=== PATIENT | male | born 1960 | race Two or more races ===

== ENCOUNTER 2018-01-17 20:11 | Emergency (ER) | payer SELFPAY ==
[2018-01-17 20:23] VITALS: BP 189/83
== END 2018-01-17 22:10 | disposition left against medical advice (07) ==
LOC: ER 20:11
DX: Z53.21 Procedure and treatment not carried out due to patient leaving prior to being seen by health care provider (principal)

== ENCOUNTER 2019-11-06 17:35 | Emergency (ER) | payer OTHER ==
[2019-11-06] MEDS ORDERED: IBUPROFEN 800 MG TABLET PO ONE (17:48)
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
[2019-11-06] MEDS ORDERED: LISINOPRIL 10 MG TABLET PO ONE (18:57)
[2019-11-06 19:01] VITALS: BP 190/103
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
== END 2019-11-06 19:41 | disposition home or self-care (01) ==
LOC: ER 17:35
DX: M54.6 Pain in thoracic spine (principal); M79.672 Pain in left foot; M54.2 Cervicalgia; V49.50XA Passenger injured in collision with unspecified motor vehicles in traffic accident, initial encounter; R25.2 Cramp and spasm; F17.200 Nicotine dependence, unspecified, uncomplicated; I10 Essential (primary) hypertension
CPT/HCPCS: 72070; 99283

== ENCOUNTER 2019-11-27 12:32 | Observation (INO) | payer OTHER ==
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
--- NOTE | 2019-11-27 14:04 | RADIOLOGY REPORT (SQ) ---
EXAM DESCRIPTION: CHEST 2 VIEWS COMPLETED DATE/TIME: 11/27/2019 1:57 pm REASON FOR STUDY: CHEST PAIN COMPARISON: None. EXAM PARAMETERS: NUMBER OF VIEWS: two views TECHNIQUE: Digital Frontal and Lateral radiographic views of the chest acquired. RADIATION DOSE: NA LIMITATIONS: none FINDINGS: LUNGS AND PLEURA: No opacities, masses or pneumothorax. No pleural effusion. MEDIASTINUM AND HILAR STRUCTURES: No masses or contour abnormalities. HEART AND VASCULAR STRUCTURES: Heart normal size. No evidence for failure. Aortic atherosclerosis. BONES: No acute findings. Chronic left 4th- 6th rib fractures. HARDWARE: None in the chest. OTHER: No other significant finding. IMPRESSION: NO ACUTE RADIOGRAPHIC FINDING IN THE CHEST. TECHNICAL DOCUMENTATION: JOB ID: [id number] 2011 [employer]- All Rights Reserved Reading location - IP/workstation name: [email or web address]
[2019-11-27 15:08] LABS: ABSOLUTE BASOPHILS # (AUTO) 0.1 10^3/uL (0.0-0.2); ABSOLUTE EOSINOPHILS # (AUTO) 0.1 10^3/uL (0.0-0.6); ABSOLUTE LYMPHOCYTES (AUTO) 2.5 10^3/uL (0.5-4.7); ABSOLUTE MONOCYTES (AUTO) 0.4 10^3/uL (0.1-1.4); ABSOLUTE NEUT (AUTO) 4.2 10^3/uL (1.7-8.2); BASOPHILS % (AUTO) 0.7 % (0-2); EOSINOPHILS % (AUTO) 1.8 % (0-6); HEMATOCRIT 44.8 % (37.9-51.0); HEMOGLOBIN 16.1 g/dL (13.5-17.0); LYMPHOCYTES % (AUTO) 33.9 % (13-45); MEAN CORPUSCULAR HEMOGLOBIN 31.6 pg (27.0-33.4); MEAN CORPUSCULAR HGB CONC 35.8 g/dL (32.0-36.0); MEAN CORPUSCULAR VOLUME 88 fl (80-97); MONOCYTES % (AUTO) 5.9 % (3-13); RED BLOOD COUNT 5.08 10^6/uL (4.35-5.55); RED CELL DISTRIBUTION WIDTH 14.1 % (11.5-14.0); SEGMENTED NEUTROPHILS % (AUTO) 57.7 % (42-78); TOTAL CELLS COUNTED % (AUTO) 100 %; WHITE BLOOD COUNT 7.3 10^3/uL (4.0-10.5)
[2019-11-27 15:24] LABS: ALBUMIN 4.4 g/dL (3.5-5.0); ALKALINE PHOSPHATASE 61 U/L (38-126); ANION GAP 10 (5-19); ASPARTATE AMINO TRANSFERASE 25 U/L (17-59); BILIRUBIN,DIRECT 0.2 mg/dL (0.0-0.4); BILIRUBIN,TOTAL 0.4 mg/dL (0.2-1.3); BLOOD UREA NITROGEN 25 mg/dL (7-20); CALCIUM 10.1 mg/dL (8.4-10.2); CARBON DIOXIDE 27 mmol/L (22-30); CHLORIDE 103 mmol/L (98-107); GLUCOSE 101 mg/dL (75-110); POTASSIUM 4.8 mmol/L (3.6-5.0); TOTAL PROTEIN 7.3 g/dL (6.3-8.2)
[2019-11-27 15:38] LABS: PLATELET COUNT 261 10^3/uL (150-450)
[2019-11-27] MEDS ORDERED: HYDRALAZINE HCL INJ/PF 20 MG/1 ML SDV IV ONE (17:24)
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
[2019-11-27] MEDS ORDERED: TEMAZEPAM 7.5 MG CAPSULE PO PRN (18:55)
[2019-11-27] MEDS ORDERED: BUTALB/ACETAMINOPHEN/CAFFEINE 1 TAB EACH PO PRN (19:00)
[2019-11-27] MEDS ORDERED: LISINOPRIL 10 MG TABLET PO ONE (19:01)
[2019-11-27] MEDS ORDERED: HYDRALAZINE HCL INJ/PF 20 MG/1 ML SDV IV PRN (19:02)
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
[2019-11-27] MEDS: ACETAMINOPHEN 325 MG TABLET PO PRN (20:14)
--- NOTE | 2019-11-27 20:16 | EKG REPORT ---
SEVERITY:- NORMAL ECG - SINUS RHYTHM : Confirmed by: Tony Solorzano MD 27-Nov-2019 20:15:52
[2019-11-27] MEDS: CHLORTHALIDONE 25 MG TABLET PO SCH (20:50)
[2019-11-27] MEDS: CYCLOBENZAPRINE HCL 10 MG TABLET PO SCH (21:20)
[2019-11-28] MEDS: CYCLOBENZAPRINE HCL 10 MG TABLET PO SCH ×3 (05:05→21:20)
[2019-11-28 06:15] LABS: HEMATOCRIT 47.4 % (37.9-51.0); HEMOGLOBIN 16.6 g/dL (13.5-17.0); MEAN CORPUSCULAR HEMOGLOBIN 31.2 pg (27.0-33.4); MEAN CORPUSCULAR VOLUME 89 fl (80-97); PLATELET COUNT 259 10^3/uL (150-450); RED BLOOD COUNT 5.31 10^6/uL (4.35-5.55); RED CELL DISTRIBUTION WIDTH 14.1 % (11.5-14.0); WHITE BLOOD COUNT 5.7 10^3/uL (4.0-10.5)
[2019-11-28 06:39] LABS: ANION GAP 9 (5-19); BLOOD UREA NITROGEN 20 mg/dL (7-20); CALCIUM 9.9 mg/dL (8.4-10.2); CARBON DIOXIDE 29 mmol/L (22-30); CHLORIDE 101 mmol/L (98-107); GLUCOSE 97 mg/dL (75-110); POTASSIUM 4.5 mmol/L (3.6-5.0)
--- NOTE | 2019-11-28 09:05 | EKG REPORT ---
SEVERITY:- NORMAL ECG - SINUS RHYTHM NONSPECIFIC ST-T CHANGES LATERAL LEADS : Confirmed by: Tony Solorzano MD 28-Nov-2019 07:10:58
[2019-11-28] MEDS: ACETAMINOPHEN 325 MG TABLET PO PRN ×2 (10:00→21:20)
[2019-11-28] MEDS: LISINOPRIL 10 MG TABLET PO SCH (10:01)
[2019-11-28] MEDS: CHLORTHALIDONE 25 MG TABLET PO SCH (10:01)
[2019-11-28] MEDS: ENOXAPARIN SODIUM INJ 40 MG/0.4 ML DISP.SYRIN SUBCUT SCH (10:04)
[2019-11-28] MEDS: DOCUSATE SODIUM 100 MG CAPSULE PO SCH (10:38)
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
[2019-11-28] MEDS ORDERED: INFLUENZA QUAD (6MOS+) 2019-20 VAC 0.5 ML SYR IM ONE (13:50)
--- NOTE | 2019-11-28 16:46 | PDOC PROGRESS REPORT ---
Subjective Progress Note for:: 11/28/19 Subjective:: Seen and examined. Chest pain resolved. Aches and pains over the body. BP is better controlled Reason For Visit: HTN EMERGENCY Physical Exam Vital Signs: Temp Pulse Resp BP Pulse Ox 98.0 F 59 L 18 149/87 H 94 11/28/19 15:12 11/28/19 15:12 11/28/19 15:12 11/28/19 15:12 11/28/19 15:12 Intake & Output 11/27/19 11/28/19 11/29/19 06:59 06:59 06:59 Intake Total 440 356 Balance 440 356 Weight 87.3 kg General appearance: PRESENT: no acute distress, cooperative, obese, well- developed Head exam: PRESENT: atraumatic, normocephalic Eye exam: PRESENT: conjunctiva pink, EOMI Respiratory exam: PRESENT: symmetrical, tachypnea Cardiovascular exam: PRESENT: RRR, +S1, +S2 Pulses: PRESENT: normal radial pulses GI/Abdominal exam: PRESENT: soft Rectal exam: PRESENT: deferred Musculoskeletal exam: PRESENT: normal inspection Neurological exam: PRESENT: alert, awake, oriented to person, oriented to place, oriented to time, oriented to situation Psychiatric exam: PRESENT: appropriate affect Skin exam: PRESENT: dry, intact, normal color Results Laboratory Results: 11/28/19 05:01 11/28/19 05:01 11/28/19 11/28/19 05:01 05:01 WBC 5.7 RBC 5.31 Hgb 16.6 Hct 47.4 MCV 89 MCH 31.2 MCHC 35.0 RDW 14.1 H Plt Count 259 Sodium 139.1 Potassium 4.5 Chloride 101 Carbon Dioxide 29 Anion Gap 9 BUN 20 Creatinine 0.81 Est GFR ( Amer) > 60 Glucose 97 Calcium 9.9 11/27/19 11/27/19 14:25 17:45 Troponin I 0.761 0.748 Impressions: Chest X-Ray 11/27/19 13:47 IMPRESSION: NO ACUTE RADIOGRAPHIC FINDING IN THE CHEST. Assessment & Plan - Diagnosis (1) Chest pain Qualifiers: Chest pain type: unspecified Qualified Code(s): R07.9 - Chest pain, unspe cified Is this a current diagnosis for this admission?: Yes Plan: Unlikely due to myocardial ischemia. Elevated troponin in a setting of uncont rolled systemic hypertension and likely subendocardial ischemia although ACS cannot be excluded. Will check Echo (2) Hypertensive emergency without congestive heart failure Is this a current diagnosis for this admission?: Yes Plan: BP is better controlled. (3) Nicotine dependence Qualifiers: Nicotine product type: cigarettes Is this a current diagnosis for this admission?: Yes Plan: Needs tobacco cessation counseling
[2019-11-29 03:31] LABS: APPEARANCE,URINE SLIGHTLY-CLOUDY; BILIRUBIN,URINE NEGATIVE (NEGATIVE); COLOR,URINE YELLOW; GLUCOSE, URINE NEGATIVE (NEGATIVE); KETONES,URINE NEGATIVE (NEGATIVE); LEUKOCYTE ESTERASE,URINE SMALL (NEGATIVE); NITRITE,URINE POSITIVE (NEGATIVE); PROTEIN,URINE NEGATIVE (NEGATIVE); URINE SPECIFIC GRAVITY 1.011; UROBILINOGEN,URINE NEGATIVE mg/dL (<2.0)
[2019-11-29] MEDS: CYCLOBENZAPRINE HCL 10 MG TABLET PO SCH (05:10)
[2019-11-29] MEDS: DOCUSATE SODIUM 100 MG CAPSULE PO SCH (09:10)
[2019-11-29] MEDS: LISINOPRIL 10 MG TABLET PO SCH (09:10)
[2019-11-29] MEDS: CHLORTHALIDONE 25 MG TABLET PO SCH (09:10)
[2019-11-29] MEDS: ENOXAPARIN SODIUM INJ 40 MG/0.4 ML DISP.SYRIN SUBCUT SCH (09:11)
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
[2019-11-29 13:05] VITALS: BP 157/88
--- NOTE | 2019-11-29 16:28 | PDOC PROGRESS REPORT ---
Subjective Progress Note for:: 11/29/19 Subjective:: Patient seen and examined. Resting in bed. Diffuse aches and pains. No specific complaints of chest pain. Reason For Visit: HTN EMERGENCY Physical Exam Vital Signs: Temp Pulse Resp BP Pulse Ox 97.2 F 77 16 157/88 H 100 11/29/19 13:04 11/29/19 13:04 11/29/19 13:04 11/29/19 13:04 11/29/19 13:04 Intake & Output 11/28/19 11/29/19 11/30/19 06:59 06:59 06:59 Intake Total 440 1032 354 Output Total 200 Balance 440 832 354 Weight 87.3 kg 90.6 kg General appearance: PRESENT: no acute distress, well-developed Head exam: PRESENT: atraumatic, normocephalic Eye exam: PRESENT: conjunctiva pink, EOMI Neck exam: PRESENT: full ROM Respiratory exam: PRESENT: symmetrical, unlabored Cardiovascular exam: PRESENT: RRR, +S1, +S2 GI/Abdominal exam: PRESENT: soft Rectal exam: PRESENT: deferred Musculoskeletal exam: PRESENT: normal inspection Neurological exam: PRESENT: alert, awake, oriented to person, oriented to place, oriented to time, oriented to situation Psychiatric exam: PRESENT: appropriate affect Skin exam: PRESENT: dry, intact, normal color Results Laboratory Results: 11/28/19 05:01 11/28/19 05:01 11/29/19 02:15 Urine Color YELLOW Urine Appearance SLIGHTLY-CLOUDY Urine pH 5.0 Ur Specific [place] 1.011 Urine Protein NEGATIVE Urine Glucose (UA) NEGATIVE Urine Ketones NEGATIVE Urine Blood MODERATE H Urine Nitrite POSITIVE H Ur Leukocyte Esterase SMALL H Urine WBC (Auto) 30 Urine RBC (Auto) 2 11/27/19 11/27/19 14:25 17:45 Troponin I 0.761 0.748 Impressions: Chest X-Ray 11/27/19 13:47 IMPRESSION: NO ACUTE RADIOGRAPHIC FINDING IN THE CHEST. Assessment & Plan - Diagnosis (1) Chest pain Qualifiers: Chest pain type: unspecified Qualified Code(s): R07.9 - Chest pain, unspecified Is this a current diagnosis for this admission?: Yes Plan: Unlikely due to myocardial ischemia. Elevated troponin in a setting of uncontrolled systemic hypertension and likely subendocardial ischemia although ACS cannot be excluded. (2) Hypertensive emergency without congestive heart failure Is this a current diagnosis for this admission?: Yes Plan: BP is better controlled. (3) Nicotine dependence Qualifiers: Nicotine product type: cigarettes Is this a current diagnosis for this admission?: Yes Plan: Needs tobacco cessation counseling
== END 2019-11-29 13:45 | disposition home or self-care (01) ==
LOC: ER 12:32 → INTOOBSV 18:14 → EH 18:14 → 4S 19:45
PROVIDERS: ADMIT Internal Medicine; ATTEND Internal Medicine
DX: I16.1 Hypertensive emergency (principal); R07.9 Chest pain, unspecified; M79.10 Myalgia, unspecified site; T14.90XS Injury, unspecified, sequela; V89.2XXS Person injured in unspecified motor-vehicle accident, traffic, sequela; N39.0 Urinary tract infection, site not specified; K59.00 Constipation, unspecified; M54.5 Low back pain; M25.512 Pain in left shoulder; M54.9 Dorsalgia, unspecified; G57.93 Unspecified mononeuropathy of bilateral lower limbs; R79.89 Other specified abnormal findings of blood chemistry; E66.9 Obesity, unspecified; F17.210 Nicotine dependence, cigarettes, uncomplicated; K02.9 Dental caries, unspecified; R10.9 Unspecified abdominal pain; Z79.899 Other long term (current) drug therapy; Z23 Encounter for immunization
CPT/HCPCS: 99285; 36415 ×2; 85025; 85027; 80048; 80053; 81001; 84484; 71046; 90686; 93005 ×2; 93010 ×2; 97161; J1650 ×2; G0378

== ENCOUNTER 2020-03-13 09:54 | Emergency (ER) | payer OTHER ==
--- NOTE | 2020-03-13 10:17 | ER Document Report ---
ED Medical Screen (RME) - General Chief Complaint: Blood Pressure Problem Stated Complaint: URINARY ISSUE Time Seen by Provider: 03/13/20 10:08 Mode of Arrival: Medic Information source: Patient Notes: 59-year-old male presented to ED for complaint of pain burning and difficulty urinating. He states he has to urinate constantly. He states is been going on for about a week. He brought some [id number] Azo and pain medicine and is not getting any relief from the pain and discomfort. He has high blood pressure. His night blood pressure is very high at this time. He states he was seen in the emergency room long time ago and they gave him some blood pressure medicine but when he went to the pharmacy and they sent something to the hospital hospital did not refill it and he cannot go to her primary care doctor due to this virus. Patient is alert oriented respirations regular and unlabored speaking in full sentences. He states he does smoke half pack a day does not drink alcohol or do any street drugs. He states he did have a prostate surgery at [facility] a while back. I have greeted and performed a rapid initial assessment of this patient. A comprehensive ED assessment and evaluation of the patient, analysis of test results and completion of medical decision making process will be conducted by an additional ED providers. TRAVEL OUTSIDE OF THE [place] IN LAST 30 DAYS: No - Related Data Allergies/Adverse Reactions: No Known Allergies Allergy (Verified 03/13/20 10:10) Past Medical History - Past Medical History Cardiac Medical History: Reports: Hx Hypertension - Immunizations Hx Diphtheria, Pertussis, Tetanus Vaccination: No Physical Exam - Vital signs Vitals: Temp Pulse Resp BP Pulse Ox 98.0 F 58 L 19 211/106 H 97 03/13/20 10:03/13/20 10:03/13/20 10:03 03/13/20 10:03 03/13/20 10:03 Course - Vital Signs Vital signs: Temp Pulse Resp BP Pulse Ox 98.0 F 58 L 19 211/106 H 97 03/13/20 10:03 03/13/20 10:03 03/13/20 10:03 03/13/20 10:03 03/13/20 10:03
[2020-03-13 10:39] LABS: ABSOLUTE EOSINOPHILS # (AUTO) 0.1 10^3/uL (0.0-0.6); ABSOLUTE LYMPHOCYTES (AUTO) 1.1 10^3/uL (0.5-4.7); ABSOLUTE MONOCYTES (AUTO) 0.5 10^3/uL (0.1-1.4); ABSOLUTE NEUT (AUTO) 5.8 10^3/uL (1.7-8.2); BASOPHILS % (AUTO) 0.6 % (0-2); EOSINOPHILS % (AUTO) 1.5 % (0-6); HEMATOCRIT 46.6 % (37.9-51.0); HEMOGLOBIN 16.2 g/dL (13.5-17.0); LYMPHOCYTES % (AUTO) 14.8 % (13-45); MEAN CORPUSCULAR HEMOGLOBIN 31.9 pg (27.0-33.4); MEAN CORPUSCULAR HGB CONC 34.9 g/dL (32.0-36.0); MEAN CORPUSCULAR VOLUME 92 fl (80-97); MONOCYTES % (AUTO) 6.4 % (3-13); PLATELET COUNT 255 10^3/uL (150-450); RED BLOOD COUNT 5.09 10^6/uL (4.35-5.55); RED CELL DISTRIBUTION WIDTH 14.8 % (11.5-14.0); SEGMENTED NEUTROPHILS % (AUTO) 76.7 % (42-78); TOTAL CELLS COUNTED % (AUTO) 100 %; WHITE BLOOD COUNT 7.6 10^3/uL (4.0-10.5)
[2020-03-13 10:58] LABS: ALBUMIN 4.4 g/dL (3.5-5.0); ALKALINE PHOSPHATASE 69 U/L (38-126); ANION GAP 7 (5-19); ASPARTATE AMINO TRANSFERASE 28 U/L (17-59); BILIRUBIN,TOTAL 0.7 mg/dL (0.2-1.3); BLOOD UREA NITROGEN 14 mg/dL (7-20); CALCIUM 9.3 mg/dL (8.4-10.2); CARBON DIOXIDE 23 mmol/L (22-30); CHLORIDE 110 mmol/L (98-107); GLUCOSE 117 mg/dL (75-110); TOTAL PROTEIN 7.3 g/dL (6.3-8.2)
[2020-03-13 10:59] LABS: APPEARANCE,URINE SLIGHTLY-CLOUDY; BILIRUBIN,URINE NEGATIVE (NEGATIVE); COLOR,URINE AMBER; GLUCOSE, URINE NEGATIVE (NEGATIVE); KETONES,URINE NEGATIVE (NEGATIVE); LEUKOCYTE ESTERASE,URINE NEGATIVE (NEGATIVE); NITRITE,URINE POSITIVE (NEGATIVE); PROTEIN,URINE NEGATIVE (NEGATIVE); URINE SPECIFIC GRAVITY 1.011
--- NOTE | 2020-03-13 13:07 | ER Document Report ---
ED General - General Chief Complaint: High Blood Pressure Stated Complaint: URINARY ISSUE Time Seen by Provider: 03/13/20 10:08 Mode of Arrival: Medic TRAVEL OUTSIDE OF THE [place] IN LAST 30 DAYS: No - HPI Notes: Chief complaint: Unable to void History of present illness: 59-year-old male with history of BPH reports increased difficulty with urination over the past 5 to 6 days. He is not been able to void at all last 12 hours. He feels very restless and took his blood pressure at home and found this to be markedly elevated. He was nauseated and vomited earlier. No fever or chills. No back pain. Previously saw a urologist at [facility] several years ago. Says he has transportation problems getting over there and has not been back for follow-up. Not currently on any medications for BPH. - Related Data Allergies/Adverse Reactions: No Known Allergies Allergy (Verified 03/13/20 10:10) Past Medical History - General Information source: Patient - Social History Smoking Status: Current Every Day Smoker Chew tobacco use (# tins/day): No Frequency of alcohol use: None Drug Abuse: None Family History: None Patient has homicidal ideation: No - Past Medical History Cardiac Medical History: Reports: Hx Hypertension Renal/ Medical History: Reports: Hx Benign Prostatic Hyperplasia - Immunizations Hx Diphtheria, Pertussis, Tetanus Vaccination: No Review of Systems - Review of Systems Notes: Constitutional: Negative for fever. HENT: Negative for sore throat. Eyes: Negative for visual changes. Cardiovascular: Negative for chest pain. Respiratory: Negative for shortness of breath. Gastrointestinal: As per HPI. Genitourinary: As per HPI. Musculoskeletal: Negative for back pain. Skin: Negative for rash. Neurological: Negative for headaches, weakness or numbness. 10 point ROS negative except as marked above and in HPI. Physical Exam - Vital signs Vitals: Temp Pulse Resp BP Pulse Ox 98.0 F 58 L 19 211/106 H 97 03/13/20 10:03 03/13/20 10:03 03/13/20 10:03 03/13/20 10:03 03/13/20 10:03 - Notes Notes: GENERAL: male approximately stated age who appears restless and uncomfortable. SKIN: Good turgor no rashes. HEAD: Normocephalic atraumatic. EYES: PERRLA. EOMI. Conjunctivae and sclerae clear. EARS: CANALS AND TMS CLEAR. NOSE: CLEAR. MOUTH: Moist mucosa. Good dentition. No stridor or edema. No drooling. NECK: Supple. No masses or thyromegaly. No adenopathy. Carotids 2+ without bruits. No JVD. BACK: Symmetrical without tenderness. CHEST: Respirations unlabored. Breath sounds clear and symmetrical. HEART: Regular rhythm. No murmur gallop or rub. ABDOMEN: Bladder is markedly distended with associated suprapubic tenderness, organomegaly or rebound. Bowel sounds normally active. No bruits. GENITALIA: Deferred. EXTREMITIES: No edema. No calf tenderness. Cap refill less than 1.5 seconds. Dorsalis pedis and posterior tibial pulses 3+ and symmetrical. NEUROLOGICAL: GCS 15. Alert and oriented x3. Normal gait. Fluent speech. Cranial nerves II through XII intact. Sensorimotor and cerebellar normal. Normal tone. PSYCHIATRIC: Anxious affect. Course - Re-evaluation Re-evalutation: 03/13/20 13:07 Soto catheter was placed by nursing staff with return of approximately 1200 cc of initially bloody urine which cleared spontaneously. Patient was immediately symptomatically improved. His blood pressure was quite elevated prior to insertion of the catheter but gradually normalized that the bladder is decompressed. 03/13/20 13:07 Chemistry profile is unremarkable. We will switch this patient over to a leg bag. I am to place him on some oral Cipro and Flomax for discharge home and have him follow-up with urology on an outpatient basis. - Vital Signs Vital signs: Temp Pulse Resp BP Pulse Ox 98.0 F 58 L 21 H 188/94 H 97 03/13/20 10:12 03/13/20 10:03 03/13/20 12:46 03/13/20 12:46 03/13/20 12:46 - Laboratory Result Diagrams: 03/13/20 10:27 03/13/20 10:27 Laboratory results interpreted by me: 03/13/20 03/13/20 03/13/20 10:05 10:27 10:27 RDW 14.8 H Chloride 110 H Glucose 117 H Urine Blood LARGE H Urine Nitrite POSITIVE H Urine Urobilinogen 4.0 H Discharge - Discharge Clinical Impression: Acute urinary retention Condition: Stable Disposition: HOME, SELF-CARE Additional Instructions: Urinary Retention Urinary retention is inability to empty the bladder. It can result from a urine infection, or from mechanical problems such as an enlarged prostate gland or swelling of the urethra. Drugs or alcohol can also lead to urine retention. The condition is usually treated by passage of a catheter. If the physician thinks the problem will continue, the catheter may be left in place for a few days. Sometimes drugs are used to stimulate the bladder if the physician feels that inadequate bladder contraction is the cause. If the condition leading to the retention is a chronic one, such as an enlarged prostate, you will be referred to a specialist for further care. Call the physician or return if you develop fever, flank or back pain, pain on urination, or recurrent difficulty passing the urine. Take prescribed medications as directed. Follow-up with referral urologist. Return here as needed for new or worsening symptoms: Pain that is worsening or unimproved Uncontrolled vomiting High fever or shaking chills Overall worsening Prescriptions: Ciprofloxacin HCl [Cipro 500 mg Tablet] 500 mg PO BID #20 tablet Tamsulosin HCl [Flomax] 0.4 mg PO DAILY 30 Days #30 capsule Referrals: ISIS CASSIDY MD [NO LOCAL MD] - Follow up as needed
[2020-03-13] MEDS ORDERED: CLONIDINE HCL 0.1 MG TABLET PO ONE (13:42)
[2020-03-13 13:43] VITALS: BP 210/108
--- NOTE | 2020-03-13 15:38 | EKG REPORT ---
SEVERITY:- NORMAL ECG - SINUS RHYTHM : Confirmed by: Tony Solorzano MD 13-Mar-2020 15:36:59
== END 2020-03-13 13:57 | disposition home or self-care (01) ==
LOC: ER 09:54
DX: R33.9 Retention of urine, unspecified (principal); R11.2 Nausea with vomiting, unspecified; F17.200 Nicotine dependence, unspecified, uncomplicated; I10 Essential (primary) hypertension
CPT/HCPCS: 36415; 51702; 80053; 81001; 84484; 85025; 93005; 93010; 99284

== ENCOUNTER 2020-04-25 15:51 | Emergency (ER) | payer SELFPAY ==
--- NOTE | 2020-04-25 16:55 | ER Document Report ---
ED Medical Screen (RME) - General Chief Complaint: Inability to Void Stated Complaint: URINARY PROBLEMS Time Seen by Provider: 04/25/20 16:54 Information source: Patient Notes: This 59-year-old male with a history of enlarged prostate difficulty voiding is unable to get into see his doctor and he has pain in the right flank with difficulty voiding and felt he should come in to be seen TRAVEL OUTSIDE OF THE [place] IN LAST 30 DAYS: No - Related Data Allergies/Adverse Reactions: No Known Allergies Allergy (Verified 03/13/20 10:10) Past Medical History - Past Medical History Cardiac Medical History: Reports: Hx Hypertension Renal/ Medical History: Reports: Hx Benign Prostatic Hyperplasia - Immunizations Hx Diphtheria, Pertussis, Tetanus Vaccination: No Physical Exam - Vital signs Vitals: Temp Pulse Resp BP Pulse Ox 98.2 F 68 20 193/90 H 97 04/25/20 16:13 04/25/20 16:13 04/25/20 16:13 04/25/20 16:13 04/25/20 16:13 Course - Vital Signs Vital signs: Temp Pulse Resp BP Pulse Ox 98.2 F 68 20 193/90 H 97 04/25/20 16:13 04/25/20 16:13 04/25/20 16:13 04/25/20 16:13 04/25/20 16:13
[2020-04-25 17:54] LABS: ABSOLUTE LYMPHOCYTES (AUTO) 0.8 10^3/uL (0.5-4.7); ABSOLUTE MONOCYTES (AUTO) 0.5 10^3/uL (0.1-1.4); BASOPHILS % (AUTO) 0.3 % (0-2); EOSINOPHILS % (AUTO) 0.3 % (0-6); HEMATOCRIT 49.4 % (37.9-51.0); HEMOGLOBIN 17.2 g/dL (13.5-17.0); LYMPHOCYTES % (AUTO) 7.4 % (13-45); MEAN CORPUSCULAR HEMOGLOBIN 31.6 pg (27.0-33.4); MEAN CORPUSCULAR HGB CONC 34.8 g/dL (32.0-36.0); MEAN CORPUSCULAR VOLUME 91 fl (80-97); MONOCYTES % (AUTO) 4.6 % (3-13); PLATELET COUNT 276 10^3/uL (150-450); RED BLOOD COUNT 5.42 10^6/uL (4.35-5.55); RED CELL DISTRIBUTION WIDTH 13.8 % (11.5-14.0); SEGMENTED NEUTROPHILS % (AUTO) 87.4 % (42-78); TOTAL CELLS COUNTED % (AUTO) 100 %; WHITE BLOOD COUNT 11.5 10^3/uL (4.0-10.5)
[2020-04-25 17:57] LABS: ALBUMIN 4.6 g/dL (3.5-5.0); ALKALINE PHOSPHATASE 80 U/L (38-126); ANION GAP 11 (5-19); ASPARTATE AMINO TRANSFERASE 37 U/L (17-59); BLOOD UREA NITROGEN 20 mg/dL (7-20); CALCIUM 9.8 mg/dL (8.4-10.2); CARBON DIOXIDE 23 mmol/L (22-30); CHLORIDE 106 mmol/L (98-107); GLUCOSE 131 mg/dL (75-110); POTASSIUM 4.1 mmol/L (3.6-5.0); TOTAL PROTEIN 7.7 g/dL (6.3-8.2)
[2020-04-25 17:59] LABS: APPEARANCE,URINE CLEAR; BILIRUBIN,URINE NEGATIVE (NEGATIVE); COLOR,URINE AMBER; GLUCOSE, URINE NEGATIVE (NEGATIVE); KETONES,URINE TRACE mg/dL (NEGATIVE); LEUKOCYTE ESTERASE,URINE NEGATIVE (NEGATIVE); NITRITE,URINE POSITIVE (NEGATIVE); PROTEIN,URINE 100 mg/dL (NEGATIVE); URINE SPECIFIC GRAVITY 1.024
[2020-04-25] MEDS ORDERED: CEFTRIAXONE INJ 1000 MG VIAL IM ONE (18:22)
[2020-04-25] MEDS ORDERED: LIDOCAINE 1% INJ-PF (10 MG/ML) 30 ML SDV IM ONE (18:22)
--- NOTE | 2020-04-25 18:28 | ER Document Report ---
HPI - HPI Patient complains to provider of: Urinary retention Time Seen by Provider: 04/25/20 16:54 Onset: Just prior to arrival Pain Level: 4 Context: This is a 59-year-old male with a history of prostatitis who has occasional urinary retention which she is experienced over the last 24 hours. In triage Soto catheter was placed with a leg bag patient put out 5000 cc of urine. Associated Symptoms: None. denies: Fever, Headache, Nausea, Vomiting, Shortness of breath Exacerbated by: Denies Relieved by: Denies - REPRODUCTIVE Reproductive: DENIES: : Past Medical History - General Information source: Patient - Social History Smoking Status: Unknown if Ever Smoked Cigarette use (# per day): No Chew tobacco use (# tins/day): No Smoking Education Provided: No Lives with: Family Family History: None - Past Medical History Cardiac Medical History: Reports: Hx Hypertension Renal/ Medical History: Reports: Hx Benign Prostatic Hyperplasia - Immunizations Hx Diphtheria, Pertussis, Tetanus Vaccination: No Vertical Provider Document - CONSTITUTIONAL Agree With Documented VS: Yes - INFECTION CONTROL TRAVEL OUTSIDE OF THE [place] IN LAST 30 DAYS: No - HEENT HEENT: Atraumatic, Conjuctival Injection, Normocephalic, PERRLA - NECK Neck: Normal Inspection - RESPIRATORY Respiratory: Breath Sounds Normal - CARDIOVASCULAR Cardiovascular: Regular Rate, Regular Rhythm - GI/ABDOMEN Gastrointestinal: Abdomen Soft, Abdomen Non-Tender - REPRODUCTIVE Male Genitalia: Normal Inspection - BACK Back: Normal Inspection - MUSCULOSKELETAL/EXTREMETIES Musculoskeletal/Extremeties: MAEW - NEURO Level of Consciousness: Awake, Alert, Appropriate - DERM Integumentary: Warm, Dry Course - Re-evaluation Re-evalutation: 04/25/20 18:23 Patient feels remarkably better after voiding and thousand cc through a Soto catheter. Leg bag was placed on the patient patient was provided with antibiotics told to follow-up with urology referral was provided to return for any change worsening condition. - Vital Signs Vital signs: Temp Pulse Resp BP Pulse Ox 98.2 F 68 20 193/90 H 97 04/25/20 16:51 04/25/20 16:13 04/25/20 16:13 04/25/20 16:13 04/25/20 16:13 - Laboratory Result Diagrams: 04/25/20 17:00 04/25/20 17:00 Laboratory results interpreted by me: 04/25/20 04/25/20 04/25/20 17:00 17:00 17:15 WBC 11.5 H Hgb 17.2 H Lymph % (Auto) 7.4 L Absolute Neuts (auto) 10.0 H Seg Neutrophils % 87.4 H Glucose 131 H ALT 55 H Urine Protein 100 H Urine Ketones TRACE H Urine Nitrite POSITIVE H Urine Urobilinogen 4.0 H Urine Ascorbic Acid 40 H Discharge - Discharge Clinical Impression: Urinary retention UTI (urinary tract infection) Qualifiers: Urinary tract infection type: site unspecified Hematuria presence: without hematuria Qualified Code(s): N39.0 - Urinary tract infection, site not specified Condition: Good Disposition: HOME, SELF-CARE Additional Instructions: Must follow-up with PMD or urology in 2 to 3 days. Follow-up with private doctor in 1 to 2 days for final radiology readings please return to the emergency room for any change worsening condition. Follow up with private M.D. for all other routine health care needs. Prescriptions: Ciprofloxacin HCl [Cipro 750 mg Tablet] 750 mg PO BID 5 Days #10 tablet Tamsulosin HCl [Flomax 0.4 mg Cap.sr] 0.4 mg PO DAILY #7 cap.sr.24h Phenazopyridine HCl [Pyridium 200 mg Tablet] 200 mg PO TID #15 tablet
[2020-04-25 18:48] VITALS: BP 187/76
== END 2020-04-25 19:00 | disposition home or self-care (01) ==
LOC: ER 15:51
DX: N39.0 Urinary tract infection, site not specified (principal); R33.9 Retention of urine, unspecified; I10 Essential (primary) hypertension
CPT/HCPCS: 99283; 96372; 51702; 36415; 85025; 80053; 81001; J3490; J0696